=== PATIENT | male | born 1950 | race Caucasian/White ===

== ENCOUNTER 2021-03-17 15:11 | Emergency (ER) | payer MEDICARE, SELFPAY ==
--- NOTE | 2021-03-17 15:12 | ED.EAR ---
HPI - Ear Problem General Chief complaint: Ear Stated complaint: ear Time Seen by Provider: 03/17/21 15:26 Source: patient and RN notes reviewed Mode of arrival: ambulatory Limitations: no limitations History of Present Illness HPI Narrative: 71-year-old male presents concern for decreased hearing, ringing in the left ear. Reports history of earwax buildup in that ear. Reports he wears a hearing aid. He denies pain, itching, purulent drainage. Denies rhinorrhea, nasal congestion, sore throat, fever. MD Complaint: decreased hearing Related Data Allergies Allergy/AdvReac Type Severity Reaction Status Date / Time erythromycin base Allergy Intermediate Nausea Verified 03/17/21 15:14 sulfamethizole Allergy Intermediate Nausea Verified 03/17/21 15:14 hydrocodone AdvReac Severe Hallucinati Verified 03/17/21 15:25 ng oxycodone AdvReac Intermediate Hives Verified 03/17/21 15:26 Review of Systems Review of Systems: Narrative: CONSTITUTIONAL: Denies malaise, chills, sweats, or fever. EYES: Denies visual changes, redness, or discharge. ENT: Denies rhinorrhea, congestion, sinus pain, otalgia and sore throat. Reports decreased hearing in the left ear CARDIOVASCULAR: Denies chest pain, palpitations, or edema. RESPIRATORY: Denies cough or dyspnea. GASTROINTESTINAL: Denies abdominal pain, nausea, vomiting, diarrhea SKIN: Denies rash or itching. MUSCULOSKELETAL: Denies myalgia. NEUROLOGIC: Denies headache. All systems reviewed & are unremarkable except as noted in HPI and below PMFSH Surgical History Surgical History (Updated 07/24/20 @ 15:12 by Sam Johnson MD) History of arthroplasty of right knee Family History Family History (Updated 12/03/18 @ 09:12 by DOCTOR UNKNOWN) Mother Patient's mother is , Onset Age: 75 Family history of Alzheimer's disease Father Patient's father is , Onset Age: 62 Carcinoma of colon Grandparent Family history of malignant neoplasm Social History Social History Smoking status: Former smoker Smoking end date: 09/11/97 Alcohol intake: current Gender identity (if verbalized by the patient): Male Comments At time of signature, agree with nursing past medical, surgical, social and family history. There is no relevant family history pertinent to the presenting complaint Exam Narrative: Exam Narrative: GENERAL: Well-appearing, well-nourished, and in no acute distress. HEAD: Normocephalic EYES: PERRLA, conjunctivae clear ENT: Nares clear. Mucous membranes moist. TM not visible due to excess cerumen bilaterally; no tragal tenderness. NECK: Supple. No lymphadenopathy CHEST: No respiratory distress, speaks in full sentences. HEART: Regular rate and rhythm. No murmur heard. SKIN: Warm, dry, no rash. NEURO: Alert and oriented x3. PSYCH: Normal mood and affect Course Course Emergency Course: Patient is aware of diagnosis, understands and agrees to treatment plan. Anticipatory guidance given. Patient agrees to follow-up as directed and is aware of reasons to seek care at the emergency department. Portions of this record may have been created with voice recognition software Vital Signs Vital signs: Reviewed. Procedures Ear Wax Removal Left Ear: Ear Wax Removal Date: 03/17/21 Ear Wax Removal Time: 15:32 Cerumenolytic Used: 5-10% Sodium Bicarb solution Results: Re-examined: some cerumen remains Ear Canal Exam: bleeding Noted Patient Tolerated Procedure: well Complications: bleeding Technique: ear canal irrigated Additional Comments: Unable to fully remove cerumen, unable to visualize TM. Some cerumen removed ear canal became irritated small amount of bleeding so procedure was discontinued Medical Decision Making MDM Narrative Medical decision making narrative: Differential diagnosis considered: Foreign body, cerumen impaction, eustachian tube dysfunction,, otitis media, otitis externa. Exam findin
[2021-03-17 15:20] VITALS: BP 141/70; PULSE 62; RESP 18; TEMP 36.4; O2SAT 100
== END 2021-03-17 16:01 | disposition home or self-care (01) ==
PROVIDERS: Emergency Provider Nurse Practitioner; PCP Family Medicine
DX: H61.22 Impacted cerumen, left ear (principal); Z87.891 Personal history of nicotine dependence; I10 Essential (primary) hypertension; M19.90 Unspecified osteoarthritis, unspecified site; Z85.828 Personal history of other malignant neoplasm of skin
CPT/HCPCS: 69209; 99212; A9270; G0463

== ENCOUNTER 2024-11-27 13:16 | Emergency (ER) | payer MEDICARE, SELFPAY ==
[2024-11-27 13:27] VITALS: BP 143/70; PULSE 84; RESP 16; TEMP 35.9; O2SAT 99
--- NOTE | 2024-11-27 13:27 | ED_ITS ---
HPI - URI/Sore Throat General Chief Complaint: Upper Respiratory Infection Stated Complaint: phlegm and chest congestion Time Seen by Provider: 11/27/24 13:27 Source: patient Mode of arrival: ambulatory Limitations: no limitations History of Present Illness HPI Narrative: 74-year-old male presents with nasal congestion, sinus pressure, postnasal drainage for approximately 5 weeks. Patient states that he has been using Flonase and taking Mucinex for or the past 10 days at least. Afebrile. No chest pain or shortness of breath. Patient states his primary care physician usually gives him antibiotic for sinus infection. All systems reviewed and negative except as noted above. Related Data Allergies Allergy/AdvReac Type Severity Reaction Status Date / Time oxycodone Allergy Intermediate Hives Verified 11/27/24 13:26 hydrocodone AdvReac Severe Hallucinati Verified 11/27/24 13:26 ng erythromycin base AdvReac Intermediate Nausea Verified 11/27/24 13:26 sulfamethizole AdvReac Intermediate Nausea Verified 11/27/24 13:26 Review of Systems Review of Systems: CONSTITUTIONAL: Denies fever, chills, or sweats. EYES: Denies visual changes, redness, or discharge. ENT: Reports rhinorrhea, congestion, postnasal drainage, sinus pressure. Uriah es sore throat, or otalgia. CARDIOVASCULAR: Denies chest pain, palpitations, or edema. RESPIRATORY: Denies cough or dyspnea. GASTROINTESTINAL: Denies abdominal pain, nausea, vomiting, or diarrhea. GENITOURINARY: Denies dysuria or hematuria. SKIN: Denies rash or itching. MUSCULOSKELETAL: Denies back pain, joint pain, or myalgia. NEUROLOGIC: Denies headache, numbness, or weakness. PSYCHIATRIC: Denies anxiety or depression. All other systems reviewed are negative, except as documented in HPI. [facility] Surgical History Surgical History History of arthroplasty of right knee Family History Family History Mother Patient's mother is , Onset Age: 75 Family history of Alzheimer's disease Father Patient's father is , Onset Age: 62 Carcinoma of colon Grandparent Family history of malignant neoplasm Social History Social History (Reviewed 06/27/24 @ 09:09 by LONNIE Akers Smoking status: Former smoker Smoking end date: 09/11/97 Alcohol intake: current Lack of Transportation: No Lack of Food: Never True Current Housing: I Have Housing Concerned About Future Housing: No Difficulty Paying Gas/Electric Bills: No Difficulty Paying for Meds: No Currently Unemployed: No Education: Bachelor's Degree Difficulty w/ Childcare or Family Care: No Gender identity (if verbalized by the patient): Male Comments At time of signature, agree with nursing past medical, surgical, social and family history. There is no relevant family history pertinent to the presenting complaint. Exam Narrative: GENERAL: This is a well-nourished, well-developed patient, in no apparent distress. HEAD: normocephalic, atraumatic. EYES: PERRL. Sclera clear/white. Vision is grossly intact. EARS: External ears normal, auditory canals clear and without drainage, TMs normal without perforation. Hearing grossly intact. NOSE: External nose normal with erythema, swelling to nares, purulent nasal drainage. maxillary sinus tenderness on palpation THROAT: Mucous membranes moist, erythema with postnasal drainage. No swelling or exudates NECK: Neck supple, non-tender without lymphadenopathy, masses or thyromegaly. CARDIOVASCULAR: Regular rate and rhythm without murmurs, gallops, or rubs. RESPIRATORY: Clear to auscultation. Breath sounds equal bilaterally. No wheezes, rales, or rhonchi. SKIN: warm, Dry, intact with no suspicious lesions or rash, good texture and turgor. NEURO: awake, alert, and oriented to person, place and time. There were no obvious focal neurologic abnormalities. EXTREMITIES: No joint tenderness, effusion, or edema noted. Course Course Level of Care: Express Care Visit Vital Signs Vital signs: reviewed MDM - URI/Sore Throat MDM Narrative Medical decision making narrative: will treat patient for bacterial sinusitis due to duration of symptoms and I am exam findings. Patient is well-appearing, nontoxic. Lungs clear to auscultation. Please be advised this is a medical document. It is intended for [id number] communication. It is written in medical language and may contain unfamiliar abbreviations or verbiage. Medical documents are intended to carry relevant information, facts as evident, and the clinical opinion of the practitioner at the time of the encounter. This report may have been done utilizing a voice recognition system. Attempts have been made to correct errors. However, there may be uncorrected grammatical, spelling, and recognition errors present. The file time of this note does not necessarily represent the time of service. Differential Diagnosis Differential diagnosis: Likely upper respiratory infection, sinusitis and viral infection Discharge Plan Discharge Clinical Impression: Acute bacterial sinusitis Patient Disposition: Home, Self-Care Condition: Stable Instructions: Sinusitis (ED) Additional Instructions: take antibiotic as prescribed. Continue using [id number] Flonase as directed on packaging. Stop Mucinex and start Salena. Drink at least 64 oz of water a day. Sleep with cool-mist humidifier in bedroom. See your doctor if symptoms are not improving. Patient Language: [place]ese Prescriptions: New amoxicillin-pot clavulanate 875-125 mg tablet 1 tablet PO Q12H 7 Days Qty: 14 0RF No Action lisinopril 20 mg tablet 20 mg PO DAILY Qty: 90 3RF Follow-up/Referrals: Sam Johnson MD [Primary Care Provider] - Time of Disposition: 13:42
--- OUTSIDE RECORDS SUMMARY | 2024-11-27 14:41 | XMS_ITS | Clinical Summary ---
Author Organization [employer] Address [address] [place] [address] Care Team Providers Care Director Digital Catalogue Name Role Phone Sam Johnson MD Primary Care Provider [phone]- [phone] Allergies No known active allergies Medications aspirin (TY) 325 mg Oral Tab Take 325 mg by mouth daily. Active methylcellulos e w/sugar (CITRUCEL) Oral Powd Take by mouth 1 time daily as needed. Active polyethylene glycol (POLYETHLENE GLYCOL) 17 gram Oral PwPk Take 17 Gram by mouth daily. Active ibuprofen (MOTRIN) 600 mg Oral Tab Take 600 mg by mouth every 6 hours as needed for Pain. Active oxyCODONE-acet aminophen (PERCOCET) 5-325 mg Oral tablet Take 1-2 Tabs by mouth every 4 hours as needed for Pain. 50 Tab 0 1 Active glucosamine-ch ondroitin (ARTHX DS) 500-400 mg Oral Cap Take 1 Cap by mouth. Active sodium, potassium and magnesium sulfates (Suprep Bowel Prep Kit) 17.5-3.13-1.6 gram Recon Soln Take 177 mL by mouth see administration instructions. 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 Gender Identity Not on file Sexual Orientation Not on file Last Filed Vital Signs Vital Sign Reading Time Taken Comments Blood Pressure 124/87 02/10/2020 3:23 PM CDT Pulse 52 02/10/2020 3:23 PM CDT Temperature 36.2 C (97.2 F) 02/10/2020 3:13 PM CDT Respiratory Rate 16 02/10/2020 3:23 PM CDT Oxygen Saturation 98% 02/10/2020 3:23 PM CDT Inhaled Oxygen Concentration - - Weight 91 kg (200 lb 9.6 oz) 02/10/2020 2:02 PM CDT Height 182.9 cm (6') 01/22/2015 7:47 AM CDT Body Mass Index 27.21 01/22/2015 7:47 AM CDT Plan of Treatment Health Maintenance Due Date Last Done Comments DTAP/TDAP/TD VACCINES (1 - Tdap) 1967 PNEUMOCOCCAL VACCINE 50+ YEA RS (1 of 1 - PCV) 1998 ZOSTER VACCINE (1 of 2) 1998 RSV VACCINE (60+ or ) (1 - 1-dose 75+ series) 2023 INFLUENZA VACCINE (#1) 2024 COLORECTAL SCREENING Discontinued 02/10/2020, 02/10/2020, 01/22/2015, Additional history exists Colorectal Cancer Screening Discontinued FIT-DNA Q 3 years Discontinued FIT/FOBT Q 1 year Discontinued Flex Sig/CT Colonography Q 5 years Discontinued Medical Devices Implanted Type Area Rehabilitation Attendant Device Identifier Shelf Expiration Date Model / Serial / Lot Log [id number] - Mesh Bard Inguinal Hernia - 1 - Mesh Marlex Sheet [id number] Implanted:Qty : 1 on 09/27/2010 at [facility] Mesh Right: Inguinal CR [employer] 03/10/2015 [id number] / [id number] / [id number] Procedures Procedure Name Priority Date/Time Associated Diagnosis Comments COLONOSCOPY REPORT 02/10/2020 3: 10 PM CDT from Last 3 Months or Most Recently Relevant to Health Maintenance Results * COLONOSCOPY REPORT (02/10/2020 3:10 PM CDT) Narrative Procedure Note Fredrick Mooney MD - 02/10/2020 3:09 PM CDT [facility] Endoscopy Patient Name: Luis Enrique Novak Procedure Date: 02/10/2020 Date of : 1950 Admit Type: Outpatient Attending MD: Fredrick Mooney , Procedure: Colonoscopy Indications: High risk colon cancer surveillance: Personal history of colonic polyps Providers: Fredrick Mooney Referring MD: Medicines: Propofol per Anesthesia Complications: No immediate complications. Procedure: Informed consent was obtained for the procedure, including moderate sedation after risks were discussed. Based on the pre-procedure assessment, including review of the patient's medical history, medications, allergies, and review of systems, the patient was deemed to be an appropriate candidate for sedation. A timeout was performed. Continuous ECG monitoring, pulse oximetry, blood pressure monitoring, and direct observation were performed. The Colonoscope was introduced through the anus and advanced to the cecum, identified by appendiceal orifice and ileocecal valve. The colonoscopy was performed without difficulty. The patient tolerated the procedure well. The quality of the bowel preparation was good. Estimated Blood Loss: Estimated blood loss: none. Findings: Hemorrhoids were found on perianal exam. The entire examined colon appeared normal on direct and retroflexion views. Non-bleeding internal hemorrhoids were found during retroflexion. The hemorrhoids were Grade II (internal hemorrhoids that prolapse but reduce spontaneously). Estimated blood loss: none. The exam was otherwise without abnormality on direct and retroflexion views. Impression: - Hemorrhoids found on perianal exam. - The entire examined colon is normal on direct and retroflexion views. - Non-bleeding internal hemorrhoids. - The examination was otherwise normal on direct and retroflexion views. - No specimens collected. Recommendation: - Discharge patient to home. - Patient has a contact number available for emergencies. The signs and symptoms of potential delayed complications were discussed with the patient. Return to normal activities tomorrow. Written discharge instructions were provided to the patient. Fredrick Mooney, 02/10/2020 3:09:54 PM Number of Addenda: [address]; [place] [address] Fredrick Mooney MD GI PROCEDURE ORDERABLES Fi nal Result from Last 3 Months or Most Recently Relevant to Health Maintenance Insurance MEDICARE PART A AND B [employer] PPO Advance Directives For more information, please contact: [phone] * Full Code (Latest Code Status on File) Date Activated Date Inactivated Comments 02/10/2020 2:05 PM 02/10/2020 5:50 PM * Full Code Date Activated Date Inactivated Comments 01/22/2015 7:49 AM 01/22/2015 1:20 PM * Full Code Date Activated Date Inactivated Comments 09/27/2010 3:05 PM 09/28/2010 2:32 AM * Full Code Date Activated Date Inactivated Comments 09/27/2010 12:33 PM 09/27/2010 3:05 PM * Full Code Date Activated Date Inactivated Comments 09/27/2010 10:48 AM 09/27/2010 12:33 PM Care Teams Director Digital Catalogue Relationship Specialty Start Date End Date Sam Johnson MD [id number] [id number] PCP - General 11/26/02
--- OUTSIDE RECORDS SUMMARY | 2024-11-27 14:41 | XMS_ITS | Encounter Summary ---
Author Organization [employer] [facility] Address 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
--- OUTSIDE RECORDS SUMMARY | 2024-11-27 14:41 | XMS_ITS | Referral Summary ---
Author Organization [facility] [employer] Address [address] [place] [address] Care Team Providers Care Lodge Sales Associate Name Role Phone Sam Johnson MD Primary Care Provider [phone] [phone] Encounters Date Type Department Care Team Description 10/24/2024 11:15 AM GAS CUTTER Office Visit [facility] Orthopedics and Sports Medicine [address] [place] [address] [address] [place] [address] Paul Oconnell DO Primary osteoarthritis of left knee (Primary Dx); Primary osteoarthritis of right hip from Last 3 Months Allergies Active Allergy Reactions Criticality Noted Date Comments Opioids - Morphine Analogues Blisters,Chills,Fever,Hive s,Itching,Mental status changes,Other (See comments),Rash High 07/07/2020 Sulfa Nausea & Vomiting Low 08/01/2019 Medications lisinopriL (PRINIVIL,ZESTRI L) 20 mg tablet Take 1 tablet (20 mg total) by mouth daily Active ibuprofen (ADVIL,MOTRIN) 600 mg tablet Take 1 tablet (600 mg total) by mouth every 6 (six) hours as needed Active Active Problems Problem Noted Date Diagnosed Date Primary osteoarthritis of right knee 06/17/2020 Social History Tobacco Use Types Packs/Day Years Used Date Smoking Tobacco: Former Cigarettes Smokeless Tobacco: Never AUDIT-C Answer Date Recorded Q1: How often do you have a drink containing alcohol? 4 or more times a week 02/26/2024 Q2: How many drinks containi ng alcohol do you have on a typical day when you are drinking? 1 or 2 06/17/202 4 Q3: How often do you have si x or more drinks on one occasion? Never 02/26/2024 Sex and Gender Information Value Date Recorded Sex Assigned at Not on file Legal Sex Male 1:49 AM GAS CUTTER Gender Identity Not on file Sexual Orientation Not on file Occupation Industry Job Start Date Job End Date advanced manufacturing engineer-retired Not on file Not on file Not on file Last Filed Vital Signs Vital Sign Reading Time Taken Comments Blood Pressure - - Pulse - - Temperature - - Respiratory Rate - - Oxygen Saturation - - Inhaled Oxygen Concentration - - Weight 90.7 kg (200 lb) 02/26/2024 1:42 PM CDT Height 182.9 cm (6') 02/26/2024 1:42 PM CDT Body Mass Index 27.12 02/26/2024 1:42 PM CDT Plan of Treatment Not on file Insurance MEDICARE [facility] MEDICARE SUPPLEMENT MEDICARE [facility] MEDICARE SUPPLEMENT Care Teams Lodge Sales Associate Relationship Specialty Start Date End Date Sam Johnson MD PCP - General Family Medicine 03/16/21
--- OUTSIDE RECORDS SUMMARY | 2024-11-27 14:41 | XMS_ITS | Clinical Summary ---
Author Organization [facility] Address [address] [place] [address] Care Team Providers Care Forge Shop Machine Repairer Name Role Phone Sam Johnson MD Primary Care Provider [phone] [phone] Allergies Active Allergy Reactions Criticality Noted Date [...] Date Primary osteoarthritis of right knee 06/17/2020 Encounters Date Type Department Care Team Description 10/24/2024 11:15 AM PLANT PROTECTION SUPERINTENDENT Office Visit [facility] Orthopedics and Sports Medicine [address] [place] [phone] Paul Oconnell DO Primary osteoarthritis of left knee (Primary Dx); Primary osteoarthritis of right hip from Last 3 Months Surgical History Surgery Date Site/Laterality Comments HERNIA REPAIR KNEE SURGERY 06/17/2020 Right FLUORO GUIDED INJECTION HIP RIGHT 07/30/2024 Right Medical History Medical History Date Comments Hiatal hernia Hypertension Primary osteoarthritis of right hip DISH (diffuse idiopathic skeletal hyperostosis) DDD (degenerative disc disease), lumbar Lumbar facet arthropathy Family History Medical History Relation Name Comments Cancer Father Relation Name Status Comments Father [...] when you are drinking? 1 or 2 Q3: How often do you have si x or more drinks on one occasion? Never 02/26/2024 Sex and Gender Information Value Date Recorded Sex Assigned at Not on file Legal Sex Male 1:49 AM PLANT PROTECTION SUPERINTENDENT Gender Identity Not on file Sexual Orientation Not on file Occupation Industry Job Start Date Job End Date director manufacturing engineering-retired Not on file Not on file Not on file Obstetrics History Last Filed Vital Signs Vital Sign Reading Time Taken Comments Blood Pressure - - Pulse - - Temperature - - Respiratory Rate - - Oxygen Saturation - - Inhaled Oxygen Concentration - - Weight 90.7 kg (200 lb) 02/26/2024 1:42 PM CDT Height 182.9 cm (6') 02/26/2024 1:42 PM CDT Body Mass Index 27.12 02/26/2024 1:42 PM CDT Plan of Treatment Health Maintenance Due Date Last Done Comments Depression Screening 1950 Fall Risk Assessment 1950 Hepatitis C Screening 1950 DTaP/Tdap/Td Vaccine (1 - Tdap) 1959 Hepatitis B Screening 1966 Zoster Vaccine (1 of 2) 1998 Abdominal Aortic Aneurysm (A AA) Screen 2013 Well Visit 65+ 2013 Covid-19 Vaccine (3 - 2023-2 5 season) 2024 12/01/2020, 10/22/2020 Influenza Vaccine (#1) 2024 8, 07/07/2016, 06/21/2015, Additional history exists Pneumococcal vaccine 65+ Completed 12/26/2022 Insurance MEDICARE [facility] MEDICARE SUPPLEMENT MEDICARE [facility] MEDICARE SUPPLEMENT Care Teams Forge Shop Machine Repairer Relationship Specialty Start Date End Date Sam Johnson MD PCP - General Family Medicine 03/16/21
--- OUTSIDE RECORDS SUMMARY | 2024-11-27 14:41 | XMS_ITS | Encounter Summary ---
Author Organization [employer] Address 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
--- OUTSIDE RECORDS SUMMARY | 2024-11-27 14:41 | XMS_ITS | Clinical Summary ---
Author Organization [facility] Address [address] [place] [address] Care Team Providers Care Operation Supervisor Name Role Phone Sam Johnson MD Primary Care Provider [phone] Source Comments [facility],non-owned Affiliates and Associated Physician Practices is amultiple site organization consisting of ambulatory clinics and hospital sitesin [place], [place], [place] and [place]. This disclosure is being madepursuant to the Care Everywhere program and may not contain all information available regarding this patient. Last updated 18.[facility] Allergies Active Allergy Reactions Criticality Noted Date Comments Codeine Other 07/07/2020 Sulfa Drugs GI Discomfort Low 08/01/2019 Medications * Be aware that medications may not be up to date on this document. Alwaysverify current medications with the patient. Medication Sig Dispensed Refills Start Date End Date Status lisinopril (PRINIVIL; ZESTRIL) 10 MG tablet Take 20 mg by mouth once daily Active Loratadine (CLARITIN) 10 MG Take 10 mg by mouth as needed Active oxyCODONE, immediate release, 10 MG tabletIndications:Sienna gely osteoarthritis of right knee Take 1 tablet by mouth every 4 hours as needed 60 tablet 06/18/2020 Active Additional Information Patient not taking.Reported on 07/23/2020 traMADol (ULTRAM) 50 MG tablet TAKE 1 TO 2 TABLETS BY MOUTH EVERY 6 HOURS NEEDED FOR PAIN 60 tablet 06/30/2020 Active Additional Information Patient not taking.Reported on 07/23/2020 Active Problems Problem Noted Date Diagnosed Date Primary osteoarthritis of right knee 06/17/2020 Immunizations Name Administration Dates Next Due INFLUENZA VACCINE, HIGH-DOSE , QUADR. (FLUZONE HIGH-DOSE QUADRIVALENT; 65Y+), 0.7 ML (HD-IIV4) 06/18/2020 Social History Tobacco Use Types Packs/Day Years Used Date Smoking Tobacco: Former Smokeless Tobacco: Never Comments:quit 30 plus years ago. Alcohol Use Standard Drinks/Week Comments Yes 0 (1 standard drink = 0.6 oz pur e alcohol) social Sex and Gender Information Value Date Recorded Sex Assigned at Male 07/03/2021 10:31 AM CDT Gender Identity Male 07/03/2021 10:31 AM CDT Sexual Orientation Straight 07/03/2021 10 :31 AM CDT Last Filed Vital Signs Vital Sign Reading Time Taken Comments Blood Pressure 154/84 07/04/2020 1:18 PM CDT Pulse 79 07/04/2020 1:18 PM CDT Temperature 36.8 C (98.2 F) 07/04/2020 1:18 PM CDT Respiratory Rate 18 07/04/2020 1:18 PM CDT Oxygen Saturation 99% 07/04/2020 1:18 PM CDT Inhaled Oxygen Concentration - - Weight 86.2 kg (190 lb) 07/04/2020 10:19 AM CDT Height 182.9 cm (6') 07/04/2020 9:41 AM CDT Body Mass Index 25.77 07/04/2020 9:41 AM CDT Plan of Treatment Health Maintenance Due Date Last Done Comments MEDICARE AWV 12 MONTHS 1950 HEPATITIS C SCREENING 02/27/1966 DTAP/TDAP/TD VACCINES (1 - Tdap) 1967 PNEUMOCOCCAL VACCINE 50+ (1 of 1 - PCV) 1998 ZOSTER VACCINE (1 of 2) 1998 Respiratory Syncytial Virus (RSV) Vaccine Pt: or over 60 yrs (1 - 1-dose 75+ series) 2023 COVID-19 VACCINE ( - 2023-2 5 season) 2024 INFLUENZA VACCINE (#1) 2024 06/18/2020 DEPRESSION SCREENING 09/11/2024 HEPATITIS B VACCINE Aged Out No longe r eligible based on patient's age to complete this topic HIB VACCINE Aged Out No longer eligi ble based on patient's age to complete this topic HPV VACCINE Aged Out No longer eligi ble based on patient's age to complete this topic MENINGOCOCCAL (Group B) VACC INE SHARED DECISION-MAKING Aged Out No longer eligibl e based on patient's age to complete this topic MENINGOCOCCAL GROUPS A/C/Y/W VACCINE Aged Out No longer eligible b ased on patient's age to complete this topic Medical Devices Implanted Type Area Shade Matcher Device Identifier Shelf Expiration Date Model / Serial / Lot Cmnt Bone Plc R 40gm Hvisc Grn Implanted:Qty : 2 on 06/17/2020 by Allie Davis MD at [facility] Right: Knee [employer] 11/15/2022 [id number] / / [id number] Cmpnt Fem Kn Rt 11 Std Cmnt Post Stab Implanted:Qty : 1 on 06/17/2020 by Allie Davis MD at [facility] Right: Knee [employer] 05/18/2029 [id number] / / [id number] Cmpnt Ptlr 38mm Persona Alply Kn Lf Implanted:Qty : 1 on 06/17/2020 by Allie Davis MD at [facility] Right: Knee [employer] 11/16/2027 [id number] / / [id number] Bsplt Tib Persona 5d H Kn Rt Cmnt Stm Implanted:Qty : 1 on 06/17/2020 by Allie Davis MD at [facility] Right: Knee [employer] 12/16/2029 [id number] / / [id number] [facility] Artc 20mm Persona 10-12 Gh Rt Kn Implanted:Qty : 1 on 06/17/2020 by Allie Davis MD at [facility] Right: Knee [employer] 10/18/2023 [id number] / / [id number] Advance Directives Documents on File Type Date Recorded Patient Point Of Sale Associate Expl anation Adv Directive/Living Will/POA 06/04/2020 1:40 PM * Full Code (Latest Code Status on File) Date Activated Date Inactivated Comments 06/17/2020 1:35 PM 06/18/2020 6:00 PM Care Teams Operation Supervisor Relationship Specialty Start Date End Date Sam Johnson MD [address] [place] [phone] PCP - General Family Medicine 01/21/18
--- OUTSIDE RECORDS SUMMARY | 2024-11-27 14:41 | XMS_ITS | Clinical Summary ---
Author Organization [facility] Address [address] [place] [id number] Care Team Providers Care Blocker Metal Base Name Role Phone Unavailable Primary Care Provider Unavailabl e Social History Tobacco Use Types Packs/Day Years Used Date Smoking Tobacco: Never Assessed Sex and Gender Information Value Date Recorded Sex Assigned at Not on file Legal Sex Male 7:06 PM CDT Gender Identity Not on file Sexual Orientation Not on file Plan of Treatment Health Maintenance Due Date Last Done Comments Hepatitis C 1966 DTaP, Tdap and Td Vaccines ( 1 - Tdap) 1967 Zoster Vaccines (1 of 2) 1998 Pneumococcal Vaccine: 65+ Ye ars (1 of 1 - PCV) 2013 RSV Immunization or 60+ Years (1 - 1-dose 75+ series) 2023 COVID-19 Vaccine ( - 2023-2 5 season) 2024 Influenza Adult (#1) 2024 Meningococcal B Vaccine Aged Out No l onger eligible based on patient's age to complete this topic Meningococcal Vaccine Aged Out No lindsay lico eligible based on patient's age to complete this topic RSV Immunizations Under 20 Months Aged Out No longer eligible based on patient's age to complete this topic
== END 2024-11-27 13:47 | disposition home or self-care (01) ==
PROVIDERS: Emergency Provider Nurse Practitioner Family; PCP Family Medicine
DX: J01.90 Acute sinusitis, unspecified (principal); Z87.891 Personal history of nicotine dependence; Z96.651 Presence of right artificial knee joint
CPT/HCPCS: 99213; G0463